=== PATIENT | female | born 1990 | race African-American/Black ===

== ENCOUNTER 2018-09-19 09:51 | Emergency (ER) | payer OTHER ==
--- NOTE | 2018-09-19 10:04 | PDOC ---
Attending Attestation - [facility] HPI: 09/19/18 11:51 The patient is a 27 year old female, 10 weeks , with a significant past medical history of syncope in , who presents to the emergency department via ems from work s/p syncopal episode around 9:30AM today. 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 She states she removed her employee vest and sweater, however , continued to feel warm and developed dizziness which prompted her to sit on her stool. She states a coworker asked if she was okay, she replied no, and then she started to fall off of the stool. She states she noticed her coworkers shoes in front of her as she was falling and remembers being caught by her coworker before hitting the ground. The patient states the next memory she has is her boss coming into the room. She states she urinated on herself. She reports a prior syncope in but denies urinary incontinence. She states she was also told by coworkers today that she was shaking, however, she does nto recall shaking with her prior syncopal episode. She reports fatigue now. She states she is hungry as she usually braks at work for breakfast at 9AM but was unable to do so. The patient denies chest pain, shortness of breath, headache and dizziness. The patient denies fever, chills, nausea, vomit, diarrhea and constipation. The patient denies dysuria, frequency, urgency and hematuria. Allergies: NKDA Highballer: Dr. Kennedy ([facility]) - Physicial Exam PE: 09/19/18 11:53 GENERAL: The patient is in no acute distress. HEAD: Normal with no signs of trauma. EYES: PERRLA, EOMI, sclera anicteric, conjunctiva clear. ENT: Ears normal, nares patent, oropharynx clear without exudates. Moist mucous membranes. NECK: Normal range of motion, supple without lymphadenopathy, JVD, or masses. LUNGS: Breath sounds equal, clear to auscultation bilaterally. No wheezes, and no crackles. HEART:Regular rate and rhythm, normal S1 and S2 without murmur, rub or gallop. ABDOMEN: Soft, nontender, normoactive bowel sounds. No guarding, no rebound. No masses palpable. EXTREMITIES: Normal range of motion, no edema. No clubbing or cyanosis. No erythema, or tenderness. NEUROLOGICAL: Cranial nerves II through XII grossly intact. Normal speech. No focal neurological deficits. MUSCULOSKELETAL: Back non-tender to palpation, no CVA tenderness SKIN: Warm, Dry, normal turgor, no rashes or lesions noted. <Dominga Tracy - Last Filed: 09/19/18 11:51> - Resident Resident Name: Alma Dueñas - ED Attending Attestation I have performed the following: I have examined & evaluated the patient, The case was reviewed & discussed with the resident, I agree w/resident's findings & plan, Exceptions are as noted - Medical Decision Making 09/19/18 10:56 EKG -NSR rate of 65 bpm, axis nml, iontervals nml - pr:168ms, QRS:82ms, QTc: 405ms, no st elevation or depression, t waves flattening, no t wave inversion, no pathological q waves, nml R wave progression 09/19/18 12:24 Laboratory Tests 09/19/18 09/19/18 09/19/18 10:31 10:31 11:15 WBC 7.1 Hgb 13.2 Hct 37.7 Plt Count 245 Sodium 136 Potassium 4.4 Chloride 105 Carbon Dioxide 25 BUN 12 Creatinine 0.5 L Random Glucose 76 Lactic Acid 1.2 Beta HCG, Quant 97955.[address] Martin would discharge with outpatient follow up US: IUP, 11 weeks Will discharge to home 09/19/18 13:11 09/19/18 13:46 Laboratory Tests 09/19/18 10:31 Creatine Kinase 125 Troponin I < 0.02 <Pau Flores - Last Filed: 09/19/18 13:46> Attestations - Attestations 09/19/18 11:53 Documentation prepared by Dominga Tracy, acting as medical record technician for Pau Flores MD <Dominga Tracy - Last Filed: 09/19/18 11:51>
--- NOTE | 2018-09-19 10:09 | PDOC ---
History of Present Illness - General Chief Complaint: Syncope/Near Syncope Stated Complaint: SYNCOPE Time Seen by Provider: 09/19/18 10:09 History Source: Patient Exam Limitations: No Limitations - History of Present Illness Initial Comments: 09/19/18 11:31 This is a 27 yo F with PMH of syncope a3, who presents due to a witnessed syncopal episode 30 min yearlier. patient was at work, standing up for an hour and a half when she felt flushed and then syncopized. She was caught by a coworker, who reports taht she was out for 1-2 min and witnessed generalized shaking. Patient also experienced urinary incontinence. She felt at her baseline when she woke up w/o focal weakness or paresthesia or fatigue. She had 2 prior syncopal episodes, once at 6w during the r1st and once not during a , both preceded by flushing but neither associated with shaking or urinary incontinence. She was seen in ED for her first syncope and told that it was due to dehydration. She admits that she had not drank or eaten anything today. She denies h/a, cp, palpitations, n/v/d/c , abd pain, dysuria, family cardiac history or sudden history. She never had an echocardiogram. Past History - Past Medical History Allergies/Adverse Reactions: Allergies Allergy/AdvReac Type Severity Reaction Status Date / Time No Known Allergies Allergy Verified 09/19/18 09:56 Home Medications: Ambulatory Orders NK [No Known Home Medication] 09/19/18 COPD: No CHF: No - Suicide/Smoking/Psychosocial Hx Smoking History: Never smoked Have you smoked in the past 12 months: No Information on smoking cessation initiated: No Hx Alcohol Use: No Drug/Substance Use Hx: No Review of Systems - Review of Systems Able to Perform ROS?: Yes Is the patient limited Faroese proficient: No Constitutional: No: Chills, Fever, Other Respiratory: No: Cough, Orthopnea, Shortness of Breath Cardiac (ROS): Yes: Syncope. No: Chest Pain, Edema, Irregular Heart Rate, Lightheadedness, Palpitations ABD/GI: No: Abdominal Distended, Constipated, Diarrhea, Nausea, Vomiting : No: Dysuria, Frequency Musculoskeletal: No: Back Pain Neurological: No: Headache, Numbness, Paresthesia, Weakness Psychiatric: No: Anxiety, Depression Hematologic/Lymphatic: No: Anemia, Blood Clots, Easy Bleeding, Easy Bruising *Physical Exam - Vital Signs Last Vital Signs Temp Pulse Resp BP Pulse Ox 98.1 F 78 16 104/70 100 09/19/18 09:51 09/19/18 09:51 09/19/18 09:51 09/19/18 09:51 09/19/18 09:51 - Physical Exam General Appearance: Yes: Nourished, Appropriately Dressed. No: Apparent Distress HEENT: positive: EOMI, [place], Normal Voice, Symmetrical. negative: Pale Conjunctivae Neck: positive: Trachea midline, Normal Thyroid, Supple. negative: Tender, Lymphadenopathy (R), Lymphadenopathy (L) Respiratory/Chest: positive: Lungs Clear, Normal Breath Sounds Cardiovascular: positive: Regular Rate, S1, S2. negative: Edema, JVD, Murmur Gastrointestinal/Abdominal: positive: Normal Bowel Sounds, Flat, Soft. negative : Mass Musculoskeletal: negative: CVA Tenderness Integumentary: positive: Dry, Warm Neurologic: positive: textile converter II-XII NML intact (grossly ), Fully Oriented, Alert, Normal Mood/Affect Moderate Sedation - Procedure Monitoring Vital Signs: Procedure Monitoring Vital Signs Temperature 98.1 F 09/19/18 09:51 Pulse Rate 78 09/19/18 09:51 Respiratory Rate 16 09/19/18 09:51 Blood Pressure 104/70 09/19/18 09:51 O2 Sat by Pulse Oximetry (%) 100 09/19/18 09:51 ED Treatment Course - LABORATORY CBC & Chemistry Diagram: 09/19/18 10:31 09/19/18 10:31 - ADDITIONAL ORDERS Additional order review: 09/19/18 11:40 EKG NS 65m nonspecific st changes in inferior and septal leads will check cbc, cmp, mag, phos, prolactin, lactic acid, and merchant tailor US hydrate with NS IV 09/19/18 12:59 pelvic us viable IU 11w + FHB. labs unremarkable, no markers elevated that would point to SZ, shaking likely part of vasovagal episode Will dc home, recommend PO hydration and cardiology f/u for outpatient TTE and event monitor. 09/19/18 13:53 *DC/Admit/Observation/Transfer Diagnosis at time of Disposition: Syncope Qualifiers: Syncope type: vasovagal syncope Qualified Code(s): R55 - Syncope and collapse - Discharge Dispostion Disposition: HOME Condition at time of disposition: Good Decision to Admit order: No - Referrals Referrals: Alex Martin MD [Staff Physician] - - Patient Instructions Additional Instructions: your syncopal episode was most likely due to a vasovagal response (drop in blood pressure) due to dehydration and . Please take care to drink plenty of water. Due to recurrent syncopal episodes, please follow up with a cyber incident responder Dr Martin to rule out a cardiac cause of your symptoms. You will find his information in your paperwork - Post Discharge Activity
[2018-09-19 10:39] VITALS: BMI 28.8
[2018-09-19 10:41] LABS: BASO % 0.9 % (0-2.0); EOS % 0.9 % (0-4.5); HEMATOCRIT 37.7 % (32.4-45.2); HEMOGLOBIN 13.2 GM/dL (10.7-15.3); MCH 30.1 pg (25.7-33.7); MCHC 34.9 g/dl (32.0-36.0); MEAN CELL VOLUME 86.2 fl (80-96); MEAN PLT VOLUME 9.6 fl (7.5-11.1); MONO % 6.1 % (3.8-10.2); NEUT % 63.1 % (42.8-82.8); PLATELET COUNT 245 K/MM3 (134-434); RBC 4.38 M/mm3 (3.60-5.2); RDW 13.6 % (11.6-15.6); WHITE BLOOD COUNT 7.1 K/mm3 (4.0-10.0)
[2018-09-19] MEDS ORDERED: SODIUM CHLORIDE 500 ML IV STA (10:59)
[2018-09-19 11:33] LABS: ALBUMIN 3.6 g/dl (3.4-5.0); ALK PHOS 56 U/L (45-117); ANION GAP 6 MMOL/L (8-16); BILIRUBIN,TOTAL 0.3 mg/dL (0.2-1); BLOOD UREA NITROGEN 12 mg/dL (7-18); CALCIUM 8.8 mg/dL (8.5-10.1); CHLORIDE 105 mmol/L (98-107); CO2 25 mmol/L (21-32); CREATININE 0.5 mg/dL (0.55-1.3); GLUCOSE,RANDOM 76 mg/dL (74-106); PHOSPHOROUS 3.2 mg/dL (2.5-4.9); POTASSIUM 4.4 mmol/L (3.5-5.1); SGOT/AST 11 U/L (15-37); SGPT/ALT 15 U/L (13-61); SODIUM 136 mmol/L (136-145); TOT PROT 7.4 g/dl (6.4-8.2)
[2018-09-19 11:38] LABS: URINE APPEARANCE CLEAR; URINE BILIRUBIN NEGATIVE (<2.0 mg/dL); URINE COLOR YELLOW; URINE GLUCOSE (UA) NEGATIVE (NEGATIVE); URINE KETONE NEGATIVE (NEGATIVE); URINE LEUK ESTERASE NEGATIVE (NEGATIVE); URINE NITRITE NEGATIVE (NEGATIVE); URINE PROTEIN NEGATIVE (NEGATIVE); URINE UROBILINOGEN NEGATIVE mg/dL (0.2-1.0)
[2018-09-19 13:56] VITALS: BP 108/65; PULSE 85; TEMP 98.6
--- NOTE | 2018-09-19 15:05 | EKG ---
Test Reason : Blood Pressure : / mmHG Vent. Rate : 065 BPM Atrial Rate : 065 BPM P-R Int : 168 ms QRS Dur : 082 ms QT Int : 390 ms P-R-T Axes : 054 060 028 degrees QTc Int : 405 ms NORMAL SINUS RHYTHM NONSPECIFIC T WAVE ABNORMALITY ABNORMAL ECG NO PREVIOUS ECGS AVAILABLE Confirmed by Dwayne Khan MD ([id number]) on 09/19/2018 3:04:35 PM Referred By: Confirmed By:Dwayne Khan MD
== END 2018-09-19 13:56 | disposition home or self-care (01) ==
LOC: JER 09:51
PROC: 3E0337Z Introduction of Electrolytic and Water Balance Substance into Peripheral Vein, Percutaneous Approach (ICD-10-PCS; principal; 2018-09-19)
DX: O26.891 Other specified pregnancy related conditions, first trimester (principal); R55 Syncope and collapse; Z3A.11 11 weeks gestation of pregnancy
CPT/HCPCS: 36415; 76801-TC; 80053; 81003; 82550; 83605; 83735; 84100; 84146; 84484; 84702; 85025; 86850; 86900; 86901; 87086; 93005; 93010; 96360; 99282-25